=== PATIENT | female | born 2005 | race Two or more races ===

== ENCOUNTER 2024-08-14 15:25 | Outpatient (CLI) | payer OTHER | END 2024-08-14 15:26 | disposition home or self-care (01) | LOC: PRENATAL 15:25 | PROVIDERS: ATTEND Obstetrics & Gynecology Maternal & Fetal Medicine | DX: O44.00 Complete placenta previa NOS or without hemorrhage, unspecified trimester (principal); O36.8199 Decreased fetal movements, unspecified trimester, other fetus; Z3A.27 27 weeks gestation of pregnancy ==

== ENCOUNTER → 2024-09-22 14:16 | Outpatient (CLI) | payer OTHER | END | disposition home or self-care (01) | LOC: PRENATAL 14:16 | PROVIDERS: ATTEND Obstetrics & Gynecology Maternal & Fetal Medicine | DX: O26.849 Uterine size-date discrepancy, unspecified trimester (principal); O36.8199 Decreased fetal movements, unspecified trimester, other fetus; Z3A.32 32 weeks gestation of pregnancy ==

== ENCOUNTER 2024-09-28 11:16 | Inpatient (IN) | payer OTHER ==
[~2024-09-28] VITALS: Ht 170.2 cm; Wt 108.0 kg
[2024-09-28 10:30] VITALS: BP 119/76
[2024-09-28] MEDS ORDERED: PRENATAL TABLE1 EAC1 PO (11:27)
[2024-09-28] MEDS ORDERED: RINGERS SOLUTION,LACTATED 1,000 ML IV SCH (11:45)
[2024-09-28] MEDS ORDERED: NIFEDIPINE 30 MG TAB.SA.OSM PO SCH (11:45)
[2024-09-28] MEDS ORDERED: AMPICILLIN SODIUM 2,000 MG VIAL IV ONE (11:45)
[2024-09-28] MEDS ORDERED: BETAMETHASONE ACETATE,SOD PHOS 30 MG/5 ML ML IM SCH (11:45)
[2024-09-28] MEDS ORDERED: AMPICILLIN SODIUM 1,000 MG in 0.9 % SODIUM CHLORIDE 100 ML IV SCH (12:00)
[2024-09-28 12:19] LABS: BASO % 0.5 % (0.1-1.2); EOS # 0.35 (0.04-0.54); EOS % 2.7 % (0.7-7.0); LYMPH # 1.86 (1.18-3.74); LYMPH % 14.1 % (19.3-53.1); MEAN PLATELET VOLUME 11.40 fl (9.4-12.4); MONO # 0.77 (0.24-0.82); MONO % 5.8 % (4.7-12.5); NEUT # 10.09 (1.56-6.13); NEUT % 76.4 % (34.0-71.1); RED CELL DISTRIBUTION WIDTH 13.2 % (11.6-14.4)
[2024-09-28 12:34] LABS: URINE APPEARANCE Clear; URINE BILIRRUBIN Negative (NEGATIVE); URINE BLOOD Negative; URINE COLOR Yellow; URINE GLUCOSE Negative (NEGATIVE); URINE KETONE Negative (NEGATIVE); URINE LEUKOCYTE Negative; URINE NITRATE Negative; URINE PROTEIN Negative (NEGATIVE); URINE UROBILINOGEN 0.2 E.U./dl
[2024-09-28 12:39] LABS: URINE BACTERIA 314.1 uL (0.0-1933); URINE EPITHELIAL CELLS 3.8 uL (0.0-38.8); URINE WBC 3.6 uL (0.0-23.2)
[2024-09-28 12:44] LABS: URINE CAST 0.00 uL (0.0-1.40); URINE RBC 1.0 uL (0.0-20.8)
[2024-09-28 12:46] LABS: ALT/SGPT 17.0 U/L (12-78); AST/SGOT 12.0 U/L (15-37); BILIRUBIN TOTAL 0.24 mg/dL (0.3-1.2); BUN CREA RATIO 19.0 (7.0-25.0); CREATININE SERUM 0.54 mg/dL (0.55-1.02); GFR 143.93; GLOBULINA 3.1 G/DL (2.4-3.5); GLUCOSE FASTING 77.0 mg/dL (65-100); INR 1.0; OSMOLALITY SERUM 281.0 MOSM/KG (275-295)
[2024-09-28 13:09] VITALS: BP 114/77; O2SAT 100
[2024-09-28] MEDS ORDERED: AMPICILLIN SODIUM 1,000 MG VIAL IV SCH (13:12)
[2024-09-28 15:18] VITALS: BP 111/79
[2024-09-28 19:46] VITALS: BP 97/67
[2024-09-28 23:53] VITALS: BP 107/74
[2024-09-29 04:07] VITALS: BP 111/76
[2024-09-29 06:09] VITALS: BP 104/72; O2SAT 100
[2024-09-29] MEDS ORDERED: ACETAMINOPHEN 500 MG GEL..CAP PO PRN ×2 (07:00)
[2024-09-29 11:12] VITALS: BP 116/76
[2024-09-29] MEDS ORDERED: BETAMETHASONE ACETATE,SOD PHOS 30 MG/5 ML ML IM SCH (12:20)
[2024-09-29 16:00] VITALS: BP 100/64
[2024-09-30 00:54] VITALS: BP 101/66
[2024-09-30 08:23] VITALS: BP 109/70
[2024-09-30 14:43] VITALS: BP 110/73
[2024-10-01] VITALS: BP 101/66
[2024-10-01 08:43] VITALS: BP 119/78
[2024-10-01 15:46] VITALS: BP 113/78
[2024-10-02] VITALS: BP 112/73
[2024-10-02 08:06] VITALS: BP 101/71
[2024-10-02 16:00] VITALS: BP 118/80
[2024-10-03 00:52] VITALS: BP 116/79
[2024-10-03 08:44] VITALS: BP 110/77
[2024-10-03] MEDS ORDERED: Procardia XL PO (09:13)
== END 2024-10-03 09:37 | disposition home or self-care (01) | DRG 833 ==
LOC: LDR 11:16 → OB/GYN 09-29 09:19
PROVIDERS: ADMIT Obstetrics & Gynecology; ATTEND Obstetrics & Gynecology
PROC: 4A1HXCZ Monitoring of Products of Conception, Cardiac Rate, External Approach (ICD-10-PCS; principal; 2024-09-28)
PROC: BY4FZZZ Ultrasonography of Third Trimester, Single Fetus (ICD-10-PCS; 2024-10-02)
PROC: BU4CZZZ Ultrasonography of Uterus and Ovaries (ICD-10-PCS; 2024-10-02)
DX: O47.03 False labor before 37 completed weeks of gestation, third trimester (principal); O26.853 Spotting complicating pregnancy, third trimester; O26.843 Uterine size-date discrepancy, third trimester; O36.8130 Decreased fetal movements, third trimester, not applicable or unspecified; Z3A.33 33 weeks gestation of pregnancy

== ENCOUNTER 2024-11-03 08:18 | Inpatient (IN) | payer OTHER ==
[~2024-11-03] VITALS: Ht 170.2 cm; Wt 110.7 kg
[2024-11-03 07:35] VITALS: BP 130/76
[~2024-11-03 08:18] MED LIST: PRENATAL TABLE1 EAC1 PO; Procardia XL PO
[2024-11-03] MEDS ORDERED: RINGERS SOLUTION,LACTATED 1,000 ML IV SCH (08:45)
[2024-11-03 08:54] LABS: BASO % 0.3 % (0.1-1.2); EOS # 0.11 (0.04-0.54); EOS % 1.0 % (0.7-7.0); LYMPH # 1.57 (1.18-3.74); LYMPH % 13.6 % (19.3-53.1); MEAN PLATELET VOLUME 11.40 fl (9.4-12.4); MONO # 0.78 (0.24-0.82); MONO % 6.7 % (4.7-12.5); NEUT # 9.02 (1.56-6.13); NEUT % 78.1 % (34.0-71.1); RED CELL DISTRIBUTION WIDTH 14.6 % (11.6-14.4)
[2024-11-03 08:55] LABS: URINE APPEARANCE Clear; URINE BILIRRUBIN Negative (NEGATIVE); URINE BLOOD Negative; URINE COLOR Yellow; URINE GLUCOSE Negative (NEGATIVE); URINE KETONE Negative (NEGATIVE); URINE LEUKOCYTE Trace; URINE NITRATE Negative; URINE PROTEIN Negative (NEGATIVE); URINE UROBILINOGEN 0.2 E.U./dl
[2024-11-03 08:57] LABS: URINE BACTERIA 1988.2 uL (0.0-1933); URINE EPITHELIAL CELLS 17.9 uL (0.0-38.8); URINE WBC 24.6 uL (0.0-23.2)
[2024-11-03 09:21] LABS: INR 1.01
[2024-11-03 09:29] LABS: ALT/SGPT 15.0 U/L (12-78); AST/SGOT 14.0 U/L (15-37); BILIRUBIN TOTAL 0.29 mg/dL (0.3-1.2); BUN CREA RATIO 18.0 (7.0-25.0); CREATININE SERUM 0.56 mg/dL (0.55-1.02); GFR 138.01; GLOBULINA 2.9 G/DL (2.4-3.5); GLUCOSE FASTING 73.0 mg/dL (65-100); OSMOLALITY SERUM 279.0 MOSM/KG (275-295)
[2024-11-03 09:32] LABS: URINE CAST 0.58 uL (0.0-1.40); URINE RBC 1.6 uL (0.0-20.8)
[2024-11-03] MEDS ORDERED: CEFOXITIN SODIUM 2,000 MG VIAL IV ONE ×2 (09:48→10:15)
[2024-11-03] MEDS ORDERED: MORPHINE SULFATE 4 MG/ML CARTRIDGE IV PRN (11:00)
[2024-11-03] MEDS ORDERED: OXYTOCIN 1,000 ML IV SCH (11:00)
[2024-11-03] MEDS ORDERED: ONDANSETRON HCL 2 MG/ML VIAL IV PRN (11:00)
[2024-11-03] MEDS ORDERED: ERYTHROMYCIN BASE OPHT 1GM EACH TUBE OP ONE (11:16)
[2024-11-03] MEDS ORDERED: OXYTOCIN 10 UNITS/ML VIAL ONE ×2 (11:22→13:47)
[2024-11-03] MEDS ORDERED: SIMETHICONE 125 MG CAPSULE PO SCH (13:00)
[2024-11-03 14:18] VITALS: BP 115/74
[2024-11-03 16:43] VITALS: BP 129/78
[2024-11-03 17:38] LABS: BASO % 0.4 % (0.1-1.2); EOS # 0.05 (0.04-0.54); EOS % 0.3 % (0.7-7.0); LYMPH # 1.75 (1.18-3.74); LYMPH % 9.1 % (19.3-53.1); MEAN PLATELET VOLUME 11.50 fl (9.4-12.4); MONO # 1.29 (0.24-0.82); MONO % 6.7 % (4.7-12.5); NEUT # 15.96 (1.56-6.13); NEUT % 83.1 % (34.0-71.1); RED CELL DISTRIBUTION WIDTH 14.6 % (11.6-14.4)
[2024-11-04 01:18] VITALS: BP 128/85
[2024-11-04 06:31] VITALS: BP 127/86
[2024-11-04 08:43] VITALS: BP 123/86
[2024-11-04] MEDS ORDERED: NAPROXEN 500 MG TABLET PO PRN (10:15)
[2024-11-04] MEDS ORDERED: ACETAMINOPHEN WITH CODEINE 1 UDTAB TABLET PO PRN (10:15)
[2024-11-04 13:33] VITALS: BP 117/81
[2024-11-04] MEDS ORDERED: DOCUSATE SODIUM 100MG CAP PO SCH (17:00)
[2024-11-04 17:50] VITALS: BP 152/85
[2024-11-05] VITALS: BP 123/76
[2024-11-05 08:00] VITALS: BP 118/80
[2024-11-05 16:08] VITALS: BP 126/86
[2024-11-06] VITALS: BP 124/83
[2024-11-06 08:13] VITALS: BP 120/85
[2024-11-06] MEDS ORDERED: NAPR500T14 PO (08:56)
[2024-11-06] MEDS ORDERED: Tylenol #3 PO (08:56)
== END 2024-11-06 13:30 | disposition home or self-care (01) | DRG 788 ==
LOC: LDR 08:18 → O/R 08:18 → OB/GYN 08:18 → O/R 12:19 → OB/GYN 14:13
PROVIDERS: ADMIT Obstetrics & Gynecology; ATTEND Obstetrics & Gynecology
PROC: 4A1HXCZ Monitoring of Products of Conception, Cardiac Rate, External Approach (ICD-10-PCS; 2024-11-03)
PROC: 10D00Z1 Extraction of Products of Conception, Low, Open Approach (ICD-10-PCS; principal; 2024-11-03 11:15)
DX: O36.8330 Maternal care for abnormalities of the fetal heart rate or rhythm, third trimester, not applicable or unspecified (principal); O76 Abnormality in fetal heart rate and rhythm complicating labor and delivery; Z3A.38 38 weeks gestation of pregnancy; Z37.0 Single live birth

== ENCOUNTER 2024-11-12 21:38 | Emergency (ER) | payer OTHER ==
[~2024-11-12] VITALS: Ht 170.2 cm; Wt 94.3 kg
[~2024-11-12 21:38] MED LIST changes: +NAPR500T14 PO; +Tylenol #3 PO
[2024-11-12] MEDS ORDERED: KETOROLAC TROMETHAMINE 30 MG VIAL IV ONE (23:15)
[2024-11-12] MEDS ORDERED: CEFTRIAXONE SODIUM 1,000 MG VIAL IM ONE (23:15)
[2024-11-12] MEDS ORDERED: KETOROLAC TROMETHAMINE 30 MG VIAL ONE (23:33)
[2024-11-12] MEDS ORDERED: CEFTRIAXONE SODIUM 1,000 MG VIAL ONE (23:34)
[2024-11-13 00:56] LABS: BASO % 0.4 % (0.1-1.2); EOS # 0.19 (0.04-0.54); EOS % 1.1 % (0.7-7.0); LYMPH # 2.00 (1.18-3.74); LYMPH % 11.7 % (19.3-53.1); MEAN PLATELET VOLUME 9.90 fl (9.4-12.4); MONO # 0.91 (0.24-0.82); MONO % 5.3 % (4.7-12.5); NEUT # 13.78 (1.56-6.13); NEUT % 80.9 % (34.0-71.1); RED CELL DISTRIBUTION WIDTH 13.8 % (11.6-14.4)
[2024-11-13 01:04] LABS: BUN CREA RATIO 21.0 (7.0-25.0); CREATININE SERUM 0.75 mg/dL (0.55-1.02); GFR 98.52; GLUCOSE FASTING 93.0 mg/dL (65-100); OSMOLALITY SERUM 282.0 MOSM/KG (275-295)
[2024-11-13 01:11] LABS: INR 1.1
[2024-11-13 01:12] LABS: ERYTHROCYTE SEDIMENTATION RATE 48 mm/hr (0-20)
[2024-11-13 02:06] LABS: URINE APPEARANCE Cloudy; URINE BILIRRUBIN Negative (NEGATIVE); URINE BLOOD Negative; URINE COLOR Yellow; URINE GLUCOSE Negative (NEGATIVE); URINE LEUKOCYTE Trace; URINE NITRATE Negative; URINE PROTEIN Trace (NEGATIVE); URINE UROBILINOGEN 1.0 E.U./dl
[2024-11-13 02:09] LABS: URINE EPITHELIAL CELLS 57.2 uL (0.0-38.8); URINE RBC 9.3 uL (0.0-20.8); URINE WBC 85.3 uL (0.0-23.2)
[2024-11-13 02:32] LABS: URINE BACTERIA > 9821.5 uL (0.0-1933); URINE CAST 1.31 uL (0.0-1.40); URINE KETONE 40 (NEGATIVE)
[2024-11-13] MEDS ORDERED: ACETAMINOPHEN500 M1 PO (02:32)
[2024-11-13] MEDS ORDERED: AMOX-CLAV 875-1 EACH PO (02:32)
== END 2024-11-13 02:53 | disposition home or self-care (01) ==
LOC: ER 21:39
DX: O86.00 Infection of obstetric surgical wound, unspecified (principal)